=== PATIENT | male | born 1955 | race Caucasian/White ===

== ENCOUNTER 2016-08-25 09:58 | Emergency (ER) | payer BC ==
[~2016-08-25] VITALS: Ht 175.3 cm; Wt 80.0 kg
[2016-08-25 10:00] VITALS: BP 181/107; PULSE 81; RESP 16; TEMP 98.2; O2SAT 98
[2016-08-25 10:33] VITALS: O2SAT 100
--- NOTE | 2016-08-25 10:33 | PD ---
HPI Chief Complaint: Syncope/Near-Syncope Time Seen by Provider: 10:12 Travel History International Travel<30 days: No Contact w/Intl Traveler<30days: No Traveled to known affect area: No History of Present Illness HPI This is a 61-year-old male with history of hypertension, hyperlipidemia controlled by medications, who presents after having a syncopal episode last night. The patient states he was out to dinner with his and friends when he started feeling dizzy. He states he told her that he thought he was in the past out. He states shortly thereafter he passed out. He reports that his friend said he was unresponsive for up to a minute. There is no reported seizure activity. There is no reported incontinence. Upon awakening, the patient states he threw up. He states he feels fine now. He denies any chest pain, chest pressure he denies any shortness of breath. He denied any headache. He denied any palpitations prior to the episode. He is asymptomatic at this time. [facility] Social History Tobacco Use: No Allergies-Medications (Allergen,Severity, Reaction): Coded Allergies: No Known Allergies (Unverified , 08/25/16) Review of Systems Except as stated in HPI: all other systems reviewed are Neg General / Constitutional: No: Fever, Chills HENT: No: Headaches, Lightheadedness, Neck Pain Cardiovascular: No: Chest Pain or Discomfort, Palpitations, Tachycardia Respiratory: No: Cough, Shortness of Breath Gastrointestinal: Positive: Nausea, Vomiting (times one episode after passing out), No: Constipation Genitourinary: No: Incontinence Musculoskeletal: No: Weakness, Pain Neurologic: Positive: Syncope, No: Weakness, Dizziness Physical Exam Narrative GENERAL: Well-developed well-nourished male in no acute respiratory distress. SKIN: Focused skin assessment warm/dry. HEAD: Atraumatic. Normocephalic. EYES: Pupils equal and round. No scleral icterus. No injection or drainage. ENT: No nasal bleeding or discharge. Mucous membranes pink and moist. NECK: Trachea midline. No JVD. Supple. CARDIOVASCULAR: Regular rate and rhythm. No murmur appreciated. RESPIRATORY: No accessory muscle use. Clear to auscultation. Breath sounds equal bilaterally. GASTROINTESTINAL: Abdomen soft, non-tender, nondistended. Hepatic and splenic margins not palpable. MUSCULOSKELETAL: No obvious deformities. No clubbing. No cyanosis. No edema. NEUROLOGICAL: Awake and alert. No obvious cranial nerve deficits. Motor grossly within normal limits. Normal speech. PSYCHIATRIC: Appropriate mood and affect; insight and judgment normal. Data Data Last Documented VS Vital Signs Date Time Temp Pulse Resp B/P Pulse Ox O2 Delivery O2 Flow Rate FiO2 08/25/16 12:12 65 16 122/82 99 08/25/16 10:16 Room Air 08/25/16 10:00 98.2 Orders Electrocardiogram (08/25/16 10:48) Basic Metabolic Panel (Bmp) (08/25/16 10:48) Complete Blood Count With Diff (08/25/16 10:48) Ckmb (Isoenzyme) Profile (08/25/16 10:48) Troponin I (08/25/16 10:48) Chest, Single Ap (08/25/16 10:48) Ct Brain W/O Iv Contrast(Rout) (08/25/16 10:48) Ecg Monitoring (08/25/16 10:48) Iv Access Insert/Monitor (08/25/16 10:48) Oximetry (08/25/16 10:48) Sodium Chloride 0.9% Flush (Ns Flush) (08/25/16 11:00) Sodium Chlor 0.9% 1000 Ml Inj (Ns 1000 M (08/25/16 10:48) CKMB (08/25/16 11:00) CKMB% (08/25/16 11:00) Sodium Chlor 0.9% 1000 Ml Inj (Ns 1000 M (08/25/16 12:15) Labs Laboratory Tests Test 08/25/16 11:00 White Blood Count 8.7 TH/MM3 Red Blood Count 4.58 MIL/MM3 Hemoglobin 15.9 GM/DL Hematocrit 45.0 % Mean Corpuscular Volume 98.1 FL Mean Corpuscular Hemoglobin 34.8 PG Mean Corpuscular Hemoglobin 35.4 % Concent Red Cell Distribution Width 13.7 % Platelet Count 223 TH/MM3 Mean Platelet Volume 8.4 FL Neutrophils (%) (Auto) 67.7 % Lymphocytes (%) (Auto) 17.3 % Monocytes (%) (Auto) 10.3 % Eosinophils (%) (Auto) 4.3 % Basophils (%) (Auto) 0.4 % Neutrophils # (Auto) 5.9 TH/MM3 Lymphocytes # (Auto) 1.5 TH/MM3 Monocytes # (Auto) 0.9 TH/MM3 Eosinophils # (Auto) 0.4 TH/MM3 Basophils # (Auto) 0.0 TH/MM3 CBC Comment DIFF FINAL Differential Comment Sodium Level 137 MEQ/L Potassium Level 4.4 MEQ/L Chloride Level 102 MEQ/L Carbon Dioxide Level 27.4 MEQ/L Anion Gap 8 MEQ/L Blood Urea Nitrogen 21 MG/DL Creatinine 1.18 MG/DL Estimat Glomerular Filtration 63 ML/MIN Rate Random Glucose 94 MG/DL Calcium Level 9.3 MG/DL Total Creatine Kinase 129 U/L Creatine Kinase MB 0.9 NG/ML Troponin I LESS THAN 0.02 NG/ML MDM Medical Decision Making Medical Screen Exam Complete: Yes Emergency Medical Condition: Yes Differential Diagnosis Vasovagal syncope versus cardiac syncope versus dehydration versus anemia Narrative Course 61 year-old male presents after having a syncopal episode last night. The patient states that he was eating dinner and started feeling dizzy. He states when he stood up, he passed out. There is no seizure activity. There is no incontinence. The patient has no cardiac arrhythmia history. The patient has no symptoms at the time my examination. EKG shows no evidence of acute process. Laboratory tests show mild dehydration. He's been given 2 L of I V fluids. The rest of his laboratory tests are within normal limits. CT scan of the brain and chest x-ray also normal. I discussed with the patient the likely etiology is vasovagal with underlying dehydration. He is instructed to follow up with his primary care physician when he returns back to the [facility] where he lives. Diagnosis Primary Impression: syncope, suspect vasovagal. Additional Impression: Mild dehydration Additional Instructions: Drink plenty of fluids. Follow up with primary care physician. Disposition: 01 DISCHARGE HOME Condition: Stable Chandler De Los Santos MD Aug 25, 2016 10:33
[2016-08-25] MEDS ORDERED: SODIUM CHLOR 0.9% 1000 ML INJ 1,000 ML IV ONE ×2 (10:48→12:15)
[2016-08-25] MEDS ORDERED: SODIUM CHLORIDE 0.9% FLUSH 10 ML FLUSH IVF PRN (11:00)
[2016-08-25 11:08] LABS: AUTOMATED NEUTROPHIL # 5.9 TH/MM3 (1.8-7.7); BASOPHIL % 0.4 % (0.0-2.0); EOSINOPHIL # 0.4 TH/MM3 (0-0.4); EOSINOPHIL % 4.3 % (0.0-4.0); HEMO FLAGS DIFF FINAL; LYMPH % 17.3 % (9.0-44.0); LYMPHOCYTE # 1.5 TH/MM3 (1.0-4.8); MEAN CELL VOLUME 98.1 FL (80.0-100.0); MEAN CORPUSCULAR HEMOGLOBIN 34.8 PG (27.0-34.0); MEAN CORPUSCULAR HGB CONC 35.4 % (32.0-36.0); MONO % 10.3 % (0.0-8.0); NEUT % 67.7 % (16.0-70.0); PLATELET COUNT 223 TH/MM3 (150-450); RED BLOOD COUNT 4.58 MIL/MM3 (4.50-5.90); RED CELL DISTRIBUTION WIDTH 13.7 % (11.6-17.2); WHITE BLOOD COUNT 8.7 TH/MM3 (4.0-11.0)
[2016-08-25 11:23] LABS: ANION GAP 8 MEQ/L (5-15); BICARBONATE 27.4 MEQ/L (21.0-32.0); BLOOD UREA NITROGEN 21 MG/DL (7-18); CHLORIDE 102 MEQ/L (98-107); GLOMERULAR FILTRATION RATE 63 ML/MIN (>89); POTASSIUM 4.4 MEQ/L (3.5-5.1); SODIUM (NA) 137 MEQ/L (136-145)
--- NOTE | 2016-08-25 11:26 | RADRPT ---
EXAM DATE/TIME: 08/25/2016 10:49 [facility] COMPARISON: No previous studies available for comparison. INDICATIONS : Lightheaded, vomitting, and feeling faint. MEDICAL HISTORY : None. SURGICAL HISTORY : None. ENCOUNTER: Initial ACUITY: 1 day PAIN SCORE: 0/10 LOCATION: Bilateral chest FINDINGS: A single view of the chest demonstrates the lungs to be symmetrically aerated without evidence of mas s, infiltrate or effusion. The cardiomediastinal contours are unremarkable. Osseous structures are intact. CONCLUSION: No acute disease. George Langston MD on August 25, 2016 at 11:23 Board Certified Radiologist. This report was verified electronically.
[2016-08-25 11:27] LABS: CREATINE KINASE 129 U/L (39-308)
[2016-08-25 11:39] LABS: CKMB 0.9 NG/ML (0.5-3.6)
[2016-08-25 12:12] VITALS: BP 122/82; PULSE 65; RESP 16; O2SAT 99
--- NOTE | 2016-08-25 12:47 | RADRPT ---
EXAM DATE/TIME: 08/25/2016 12:01 [facility] COMPARISON: No previous studies available for comparison. INDICATIONS : Syncopal episode last night with vomiting, resolved today RADIATION DOSE: 32.83 CTDIvol (mGy) MEDICAL HISTORY : Cardiovascular disease. Hypertension. SURGICAL HISTORY : Appendectomy. ENCOUNTER: Initial ACUITY: 2 days PAIN SCALE: 0/10 LOCATION: cranial TECHNIQUE: Multiple contiguous axial images were obtained of the head. Using automated exposure control and adj ustment of the mA and/or kV according to patient size, radiation dose was kept as low as reasonably a chievable to obtain optimal diagnostic quality images. DICOM format image data is available electro nically for review and comparison. FINDINGS: CEREBRUM: There is mild cerebral atrophy. Ventricles are normal in size. No evidence of midline shift, mass les ion, hemorrhage or acute infarction. No extra-axial fluid collections are seen. POSTERIOR FOSSA: The cerebellum and brainstem demonstrate no acute finding. The 4th ventricle is midline. The cerebe llopontine angle is unremarkable. EXTRACRANIAL: Sinuses are clear. SKULL: The calvaria is intact. No evidence of skull fracture. CONCLUSION: No acute intracranial abnormality is identified. Juan Pablo Clinton MD on August 25, 2016 at 12:43 Board Certified Radiologist. This report was verified electronically.
[2016-08-25 13:42] VITALS: BP 124/77; PULSE 62; RESP 18; O2SAT 98
--- NOTE | 2016-08-25 14:46 | EKG ---
Date Performed: 08/25/2016 Time Performed: 10:35:22 PTAGE: 61 years EKG: Sinus rhythm BORDERLINE LEFT AXIS DEVIATION BORDERLINE ECG INTERPRETATION BASED ON A DEFAULT AGE OF 39 YEARS NO PREVIOUS TRACING DOCTOR: Abisai Julian Interpretating Date/Time 08/25/2016 14:45:28
== END 2016-08-25 13:59 | disposition home or self-care (01) ==
LOC: NEPC 09:58
DX: R55 Syncope and collapse (principal); E86.0 Dehydration; I10 Essential (primary) hypertension; E78.5 Hyperlipidemia, unspecified
CPT/HCPCS: 70450; 71010; 80048; 82550; 82552; 84484; 85025; 93005; 96360; 96361; 99285; J7030